=== PATIENT | male | born 1970 | race African-American/Black ===

== ENCOUNTER 2017-02-28 19:31 | Emergency (ER) | payer SELFPAY ==
[~2017-02-28] VITALS: Ht 172.7 cm; Wt 81.6 kg
[2017-02-28 19:40] VITALS: BP 140/84
[2017-02-28] MEDS ORDERED: ACET-704 PO (20:30)
[2017-02-28] MEDS ORDERED: AMOX500C PO (20:30)
--- NOTE | 2017-02-28 20:31 | PHYS DOC ---
Past Medical History Past Medical History: No Pertinent History Past Surgical History: Other Additional Past Surgical Histo: right foot sx Alcohol Use: None Drug Use: Marijuana Adult General Chief Complaint Chief Complaint: DENTAL PROBLEM HPI HPI Patient is a 46 year old female presents to the emergency department with a history of left lower dental pain. Patient states the pain has been occurring for the last 2 days. He has been taking Aleve with minimal relief. Patient states he does not have a dentist. Denies fever, chills, nausea or vomiting. Review of Systems Review of Systems Constitutional: Denies fever or chills [] Eyes: Denies change in visual acuity, redness, or eye pain [] HENT: Denies nasal congestion or sore throat. C/o dental pain with radiation into the left ear Respiratory: Denies cough or shortness of breath [] Cardiovascular: No additional information not addressed in HPI [] GI: Denies abdominal pain, nausea, vomiting, bloody stools or diarrhea [] : Denies dysuria or hematuria [] Musculoskeletal: Denies back pain or joint pain [] Integument: Denies rash or skin lesions [] Neurologic: Denies headache, focal weakness or sensory changes [] Endocrine: Denies polyuria or polydipsia [] All other systems were reviewed and found to be within normal limits, except as documented in this note. Allergies Allergies Allergies Coded Allergies Type Severity Reaction Last Updated Verified No Known Drug Allergies 02/28/17 No Physical Exam Physical Exam Constitutional: Well developed, well nourished, no acute distress, non-toxic appearance. [] HENT: Normocephalic, atraumatic, bilateral external ears normal, oropharynx moist, no oral exudates, nose normal. Bilateral tympanic membranes appear to be normal. Throat with no erythematous patient with the #18 tooth that appears to be decayed. Patient with tenderness noted along the left mandible. Eyes: PERRLA, EOMI, conjunctiva normal, no discharge. [] Neck: Normal range of motion, no tenderness, supple, no stridor. [] Cardiovascular:Heart rate regular rhythm, no murmur [] Lungs & Thorax: Bilateral breath sounds clear to auscultation [] Skin: Warm, dry, no erythema, no rash. [] Back: No tenderness Extremities: No tenderness, no cyanosis, no clubbing, ROM intact, no edema. [] Neurologic: Alert and oriented X 3, normal motor function, normal sensory function, no focal deficits noted. [] Psychologic: Affect normal, judgement normal, mood normal. [] Current Patient Data Vital Signs Vital Signs Date Time Temp Pulse Resp B/P (MAP) Pulse Ox O2 Delivery O2 Flow Rate FiO2 02/28/17 19:40 98.1 66 18 98 Room Air 98.1 EKG EKG [] Radiology/Procedures Radiology/Procedures [] Course & Med Decision Making Course & Med Decision Making Pertinent Labs and Imaging studies reviewed. (See chart for details) Recommended patient to obtain dental wax [id number] to place over the tooth. He'll be provided with amoxicillin 1 tablet 4 times a day for the next 10 days. He will be provided with Tylenol No. 3 for severe pain and discomfort. Recommended a follow-up with a dentist within the next week. Patient will be provided with a dentist [place] in the emergency department. Patient agrees with discharge instructions, treatment regimens and follow-up recommendations. Signs and symptoms to return back to the emergency department have been provided. I've spoken with the patient and/or caregivers. I've explained the patient's condition, diagnosis and treatment plan based on information available to me at this time. I've answered the patient's and/or caregivers questions and addressed any concerns. The patient and/or caregivers have a good understanding the patient's diagnosis, condition and treatment plan as can be expected at this point. Vital signs have been stabilized. The patient's condition is stable for discharge from the emergency department. The patient will pursue further outpatient evaluation with her primary care provider or other designated consulting physician as outlined in the discharge instructions. Patient and/or caregivers are agreeable to this plan of care and follow-up instructions have been explained in detail. The patient and/or caregivers have received these instructions in written format and expressed understanding of these discharge instructions. The patient and her caregivers are aware that if any significant change in condition or worsening of symptoms should prompt him to immediately return to this of the closest emergency department. If an emergent department is not readily available I would encourage him to call 911. [] Dragon Disclaimer Dragon Disclaimer This electronic medical record was generated, in whole or in part, using a voice recognition dictation system. Departure Departure Impression: Primary Impression: Dental abscess Disposition: HOME, SELF-CARE Condition: STABLE Referrals: NO PCP (PCP) Patient Instructions: Dental Abscess Additional Instructions: Activity as tolerated. Medication as prescribed. Tylenol No. 3 for severe pain and discomfort. Continue to use the Aleve as directed by manufacture. Follow-up with a dentist within the next week. Warm salt water mouth rinses 4 times a day. Obtain dental wax [id number] and placed that over the tooth to help with pain control. Return to the emergency department as needed for signs and symptoms that become worse. Scripts Acetaminophen With Codeine (TYLENOL WITH CODEINE #3 TABLET) 1 Each Tablet 1 TAB PO PRN Q6HRS Y for PAIN, #15 TAB Prov: HIMANSHU STAFFORD APRN 02/28/17 Amoxicillin (AMOXICILLIN) 500 Mg Capsule 1 CAP PO QID, #40 CAP Prov: HIMANSHU STAFFORD APRN 02/28/17 HIMANSHU STAFFORD APRN Feb 28, 2017 20:31
== END 2017-02-28 20:37 | disposition home or self-care (01) ==
LOC: ER 19:31
DX: K04.7 Periapical abscess without sinus (principal)
CPT/HCPCS: 99283